=== PATIENT | female | born 1960 | race Caucasian/White ===

== ENCOUNTER 2025-01-11 10:53 | Emergency (ER) | payer BC ==
[2025-01-11] MEDS ORDERED: Sodium Chloride 0.9% 10 ML Syringe FLUSH PRN (10:55)
[2025-01-11 11:03] LABS: PLATELET COUNT,PLT 290 10^3/uL (150-450); RED BLOOD CELL COUNT 5.53 10^6/uL (4.2-5.4); WHITE BLOOD CELL COUNT,WBC 9.1 10^3/uL (5.0-10.0)
[2025-01-11 11:04] LABS: BASOPHILS PERCENT AUTO 0.3 % (0.0-1.0); EOSINOPHILS PERCENT AUTO 3.2 % (1.0-3.0); LYMPHOCYTES PERCENT AUTO 30.4 % (20.5-50.1); MONOCYTES PERCENT AUTO 11.5 % (2-8); NEUTROPHILS PERCENT AUTO 54.6 % (42.2-75.2)
[2025-01-11] MEDS: niCARdipine/Normal Saline 20 MG/200 ML BAG IV SCH (11:10)
[2025-01-11 11:17] LABS: INR 0.9 (0.9-1.2); PTT,PARTIAL THROMBOPLSTIN TIME 21.8 SEC (22.0-34.0)
[2025-01-11 11:22] LABS: A/G RATIO 1.2; ALANINE AMINOTRANSFERASE,ALT 29 U/L (14-59); ASPARTATE AMNIOTRANSFERASE,AST 24 U/L (15-37); BILIRUBIN TOTAL 1.1 mg/dL (0.2-1.0); BLOOD UREA NITROGEN,BUN 15 mg/dL (7-18); CARBON DIOXIDE,CO2 27 mmol/L (21-32); CHLORIDE,CL 103 mmol/L (98-107); CREATININE 0.77 mg/dL (0.55-1.02); ESTIMATED GFR 85 mL/min (>=60); GLUCOSE RANDOM 157 mg/dL (70-99); POTASSIUM,K 2.8 mmol/L (3.5-5.1); PROTEIN TOTAL,TP 8.5 g/dL (6.4-8.2); SODIUM,NA 142 mmol/L (136-145)
[2025-01-11 11:25] LABS: EOSINOPHILS PERCENT MAN 2 % (1-3); LYMPHOCYTES PERCENT MAN 30 % (20-50); MONOCYTES PERCENT MAN 11 % (2-8); SEG NEUTROPHILS PERCENT MAN 57 % (42-75)
[2025-01-11] MEDS: niCARdipine/Normal Saline 20 MG/200 ML BAG ONE (11:28)
== END 2025-01-11 12:00 ==
LOC: DL.ED 10:53
DX: I62.9 Nontraumatic intracranial hemorrhage, unspecified (principal)
CPT/HCPCS: 31500; 36415; 70450; 71045; 80053; 82947; 84484; 85025; 85610; 85730; 93005; 93010; 99291; J1920; J2404; 96365; 96375; 99285-25